=== PATIENT | female | born 1940 | race Caucasian/White ===

== ENCOUNTER 2019-10-17 08:15 | Emergency (ER) | payer MEDICARE, SELFPAY ==
--- NOTE | ~2019-10-17 | CT_ITS ---
EXAMINATION: CT brain wo con DATE: 10/17/2019 09:02 INDICATION: Head injury. TECHNIQUE: Computed tomography (CT) of the head was performed without intravenous contrast. The mA wa s adjusted according to patient size. Iterative reconstruction technique was employed. The dose-lengt h product was 605.33 mGy-cm. COMPARISON: Head CT 08/18/2006 FINDINGS: There is diffuse brain volume loss, worst in the anterior temporal lobes. There are old lac unar infarcts in the bilateral basal ganglia. There are scattered areas of low attenuation in the cer ebral white matter. There is no intracranial hemorrhage, acute infarction, or abnormal intracranial m ass lesion. The ventricles are normal in size. There is a left lateral scalp hematoma. The paranasal sinuses are clear. The orbits are normal. The mastoid air cells are normal. IMPRESSION: 1. Old lacunar infarcts in the bilateral basal ganglia. 2. Moderate nonspecific cerebral white matter disease, which likely represents chronic small vessel i schemic disease. Reviewed, dictated and finalized at location A. IMPRESSION: 1. Old lacunar infarcts in the bilateral basal ganglia. 2. Moderate nonspecific cerebral white matter disease, which likely represents chronic small vessel ischemic disease.
--- NOTE | ~2019-10-17 | XR_ITS ---
EXAMINATION: XR tibia fibula LT 2V EXAM DATE: 10/17/2019 09:39 INDICATION: Fall, hematoma proximal lateral fibula. TECHNIQUE: Left tibia/fibula frontal and lateral projections obtained and reviewed. Correlation is jocelyn newton to left knee exam 08/04/2012. FINDINGS: Left tibial and fibular shafts are unremarkable on the frontal projection. On the lateral projection the distalmost tip of the fibula was collimated off the image. If there is any clinical lopez spicion of ankle region injury a repeat lateral can be obtained and addendum added. There are no acut e fractures or dislocations identified. There is no subcutaneous gas. There are arterial calcificat ions, arteriosclerosis. There are no radiopaque foreign bodies. 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 IMPRESSION: Limited distal fibular tip evaluation. Otherwise no acute osseous findings. Reviewed, dictated and finalized at location A. IMPRESSION: Limited distal fibular tip evaluation. Otherwise no acute osseous f indings.
--- NOTE | ~2019-10-17 | CT_ITS ---
EXAMINATION: CT cervical spine wo con EXAM DATE: 10/17/2019 09:02 INDICATION: Fall, head injury. TECHNIQUE: Spiral CT of the cervical spine was performed without contrast. Axial images were reviewe d. Coronal and sagittal reformatted images were also reviewed. The dose-length product (DLP) for thi s examination was 165.34 mGy-cm. The exposure was tailored according to patient size (auto mA exposu re control), and iterative reconstruction (ASIR) was used as additional dose reduction technique. ere is no prior study for comparison. FINDINGS: Patient's cervical vertebral bodies and facet joints have osseous fusion. There is no evide nce of acute cervical fracture. The odontoid process is intact. Pre-dens space is normal. Preverte bral soft tissue is normal. There are no soft tissue abnormalities identified. There is no disc spa ce widening or traumatic vertebral body subluxation suspected. IMPRESSION: 1. No acute cervical fracture. 2. Fused cervical spine, may indicate ankylosing spondylitis. Reviewed, dictated and finalized at location A.
--- NOTE | 2019-10-17 08:19 | ED.FALL ---
HPI - Fall General Chief Complaint: Fall Stated Complaint: Fall Time Seen by Provider: 10/17/19 08:19 Source: EMS Mode of arrival: EMS Limitations: language barrier and dementia History of Present Illness HPI Narrative: The patient is an 79-year-old severely demented female who presents for evaluation of fall out of bed. Patient reportedly witnessed rolled out of bed this morning at her long-term care facility. Patient reportedly had no loss of consciousness. Patient had large bruising noted to her forehead and left side of her head. Patient has chronic, severe dementia, is nonverbal, is unable to eat. She was sent here for evaluation of intracranial injury given the bruising and unable to provide any history. Related Data Home Medications Medication Instructions Recorded Confirmed Multilex 10/17/19 aspirin 81 mg PO DAILY 10/17/19 10/17/19 docusate sodium 100 mg PO DAILY 10/17/19 10/17/19 guaifenesin [Mucinex] 600 mg PO BID 10/17/19 10/17/19 linaclotide [Linzess] 72 mcg PO QAM 10/17/19 10/17/19 pantoprazole 40 mg PO QAM 10/17/19 10/17/19 Allergies Allergy/AdvReac Type Severity Reaction Status Date / Time No Known Allergies Allergy Unknown Verified 10/17/19 08:52 Review of Systems Review of Systems: ROS unobtainable: Yes unobtainable due to medical condition PMFSH Past Medical History Medical History Dementia Diabetes Hypertension Surgical History Surgical History H/O inguinal hernia repair History of appendectomy Hx of cholecystectomy Family History Family History (Updated 11/23/13 @ 07:13 by DOCTOR UNKNOWN) Sibling Family history of gout Family history of obesity Family history of heart disease in male family member before age 55 Mother Patient's mother is Father Patient's father is Family history of coronary artery disease Social History Social History Smoking status: Never smoker Alcohol intake: never Exam Narrative: Exam Narrative: GENERAL: Awake, alert, nonverbal HEAD: Hematoma to forehead, hematoma to left parietal lobe, non-boggy, no depressions palpated EYES: PERRLA and EOMI. ENT: Nares clear, no rhinorrhea or epistaxis. Mucous membranes moist. NECK: Cervical collar in place. No grimace with patient. CHEST: No respiratory distress, breathing even and non labored, chest wall stable without crepitus, no grimace with palpation, no ecchymoses HEART: Regular rate, sinus rhythm ABDOMEN:Non distended, non tender. Pelvis is stable to anterior lateral compression. EXTREMITIES: Normal range of motion. No edema. No squaring off of the shoulders. No deformities noted. No deformities to the shoulders, elbows, wrists, hands bilaterally. Ecchymoses to the left lateral leg. SKIN: Warm, dry, no rash. NEURO: At baseline per EMS. Chronic upper extremity contractures. Limited spontaneous movement. Nonverbal. Unable to respond to commands. Increased tonicity, rigidity upper and lower extremities. No posturing. Course Vital Signs Vital signs: Vital Signs Temperature 36.6 C 10/17/19 08:33 Pulse Rate 62 10/17/19 08:33 Respiratory Rate 16 10/17/19 08:33 Blood Pressure 90/52 L 10/17/19 08:33 Pulse Oximetry 98 10/17/19 08:33 Temperature 36.6 C 10/17/19 08:33 Pulse Rate 62 10/17/19 08:33 Respiratory Rate 16 10/17/19 08:33 Blood Pressure 90/52 L 10/17/19 08:33 Pulse Oximetry 98 10/17/19 08:33 MDM - Fall MDM Narrative Medical decision making narrative: Patient presented from care facility for evaluation of rolled from bed that was witnessed. Patient without loss of consciousness. She was sent here for evaluation of intracranial injury. On exam, patient does have a left scalp hematoma without laceration. No cervical midline tenderness or step-offs on exam. P
[2019-10-17 08:33] VITALS: BP 90/52; PULSE 62; RESP 16; TEMP 36.6; O2SAT 98
== END 2019-10-17 11:15 ==
PROVIDERS: Emergency Provider Emergency Medicine; PCP Family Medicine
DX: S09.90XA Unspecified injury of head, initial encounter (principal); W06.XXXA Fall from bed, initial encounter; F03.90 Unspecified dementia, unspecified severity, without behavioral disturbance, psychotic disturbance, mood disturbance, and anxiety; E11.9 Type 2 diabetes mellitus without complications; I10 Essential (primary) hypertension
CPT/HCPCS: 70450; 72125; 73590; 99284; L0140

== ENCOUNTER 2019-12-28 14:26 | Emergency (ER) | payer MEDICARE, SELFPAY ==
[2019-12-28] VITALS (31 sets, daily range): BP systolic 104–149; BP diastolic 50–98; PULSE 84–113; RESP 10–27; TEMP 36.4–36.6; O2SAT 86–96
--- NOTE | ~2019-12-28 | CT_ITS ---
EXAMINATION: CT abdomen pelvis w con DATE: 12/28/2019 16:44 INDICATION: Failure to thrive TECHNIQUE: Computed tomography (CT) of the abdomen and pelvis was performed with 100 cc Omnipaque 350 intravenous contrast. Automated exposure control and iterative reconstruction technique were employe d. Exam dose: 520.40 mGy-cm total exam DLP. COMPARISON: 05/29/2018 CT chest abdomen pelvis FINDINGS: There is bilateral lateral lower lobe dependent atelectasis. Heart size is within normal limits. No pericardial effusion. Very slight right pleural effusion. The gallbladder appears to be surgically absent. There are calcified hepatic and numerous calcified s plenic granulomas. No hepatic, splenic, pancreatic, and adrenal space-occupying mass lesion is eviden t. There is a large exophytic cyst of the upper pole of the right kidney and another of the lower katelynn e of the left kidney. No solid renal space-occupying mass lesion is evident. No urinary tract calculu s or hydroureteronephrosis. The urinary bladder and uterus and adnexal areas appear unremarkable. There is extensive atherosclerotic calcification of the abdominal aorta but no abdominal aortic aneur ysm. No intraperitoneal or retroperitoneal or pelvic mass lesion or adenopathy or ascites. There is extensive rectosigmoid fecal impaction measuring up to 11 x 12 mm on axial images and up to 20 cm length, with moderate thickening of the rectal and sigmoid colon wall, suggesting stercoral col itis. There is prominent fecal material within much of the remainder of the colon and gaseous distent ion of colon and small bowel, with small bowel air-fluid levels, minimal small bowel dilatation. Diffuse osteopenia. There is ossification along the anterior longitudinal ligament and squaring of an terior vertebral bodies and some ankylosis at the sacroiliac joints. 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 Reviewed, dictated and finalized at location B.
--- NOTE | ~2019-12-28 | CT_ITS ---
EXAMINATION: CT brain wo con DATE: 12/28/2019 16:44 INDICATION: Mental status change. TECHNIQUE: Computed tomography (CT) of the head was performed without intravenous contrast. The mA wa s adjusted according to patient size. Iterative reconstruction technique was employed. The dose-lengt h product was 605.33 mGy-cm. COMPARISON: Head CT 10/17/2019 FINDINGS: There is diffuse brain volume loss. There are old lacunar infarcts in the bilateral basal g anglia. There are scattered areas of low attenuation in the cerebral white matter. There is no intrac ranial hemorrhage, acute infarction, or abnormal intracranial mass lesion. The ventricles are normal in size and degree of diffuse brain volume loss. The orbits are normal. The mastoid air cells are nor mal. The paranasal sinuses are clear. IMPRESSION: 1. Old lacunar infarcts in the bilateral basal ganglia. 2. Stable moderate nonspecific cerebral white matter disease, which likely represents chronic small v essel ischemic disease. Reviewed, dictated and finalized at location A. IMPRESSION: 1. Old lacunar infarcts in the bilateral basal ganglia. 2. Stable moderate nonspecific cerebral white matter disease, which likely repr esents chronic small vessel ischemic disease.
[2019-12-28 15:08] LABS: Add Urine Microscopic? YES; Appearance Urine Clear (Clear); Bacteria Urine Trace /hpf; Bilirubin Urine 1+ (Negative); Blood Urine Negative (Negative); Color Urine Amber (Yellow); Glucose Urine UA Negative (Negative); Ketones Urine Trace mg/dL (Negative); Leukocyte Esterase Ur Trace LEU/UL (Negative); Mucus Urine Rare /lpf; Nitrate Urine Negative (Negative); Protein Urine 1+ mg/dL (Negative); Squamous Epithelial Cell Urine Many /hpf (Few)
[2019-12-28 15:16] LABS: Basophils Percent Auto 0.2 % (0.2-1.2); Hemoglobin 14.2 g/dL (12.0-15.0); Immature Granulocyte Absolute 0.04 K/mm3 (0.00-0.031); Immature Granulocyte Percent A 0.3 % (0-0.5); Lymphocytes Absolute Auto 0.69 K/mm3 (0.9-3.2); Lymphocytes Percent Auto 5.8 % (18.3-44.2); Mean Corpuscular HGB Conc 33.8 g/dl (32-36); Mean Corpuscular Hemoglobin 33.5 pg (26-34); Mean Corpuscular Volume 99.1 fl (80-100); Mean Platelet Volume 10.8 fl (7.4-10.4); Monocytes Absolute Auto 0.4 K/mm3 (0.1-0.6); Monocytes Percent Auto 3.6 % (2.6-8.5); Neutrophils Absolute Auto 10.8 K/mm3 (1.3-6.7); Neutrophils Percent Auto 90.1 % (45.5-73.1); Platelet Count Result 303 k/mm3 (150-375); Red Blood Count 4.24 M/mm3 (4.2-5.4); Red Cell Distribution Width 12.9 % (11.5-14.5); White Blood Count 11.9 K/mm3 (4.5-10.0)
[2019-12-28 15:23] LABS: Specific Grav Ur 1.031 (1.001-1.035)
[2019-12-28 15:30] LABS: INR 1.3; Prothrombin Time 16.1 Seconds (11.1-14.7)
[2019-12-28 15:31] LABS: Partial Thromboplastin Time 29.7 SECONDS (22.3-36.8)
[2019-12-28 15:33] LABS: Alanine Aminotransferase 80 U/L (4-35); Albumin Level 3.8 g/dL (3.5-5.1); Alkaline Phosphatase 98 U/L (38-126); Anion Gap 7 mmol/L (8-16); Aspartate Amino Transferase 56 U/L (14-36); Bilirubin,Total 1.4 mg/dL (0.2-1.3); Blood Urea Nitrogen 32 mg/dL (7-17); CRP 3.9 mg/dL (<1.0); Calcium 9.9 mg/dL (8.4-10.2); Carbon Dioxide 34 mmol/L (22-30); Chloride 102 mmol/L (98-107); Estimated CRCL calculation 56 ml/min; Estimated Glomerular Filt Rate > 60; Glucose 193 mg/dL (65-105); Potassium 3.6 mmol/L (3.4-5.0); Sodium 143 mmol/L (137-145)
[2019-12-28 15:34] LABS: Lactic Acid Reflex 1.4 mmol/L (0.7-2.1)
[2019-12-28 15:42] LABS: Troponin I < 0.012 ng/mL (0.000-0.034)
--- NOTE | 2019-12-28 16:29 | ED.GENADULT ---
HPI - General Adult General Chief complaint: Weakness Stated complaint: LETHARGY Time Seen by Provider: 12/28/19 14:35 Source: EMS Limitations: clinical condition History of Present Illness HPI narrative: 79 years old female came from [place] with a chief complaint of failure to thrive. [facility] staff told me that patient is refusing to eat or take her medications. The told me that patient does talk for the last 14 years, family had a hospice meeting today and requested to send patient to the ED to find out that patient been no longer communicating and does not want to eat. Patient responsive only to painful stimulation. Related Data Home Medications Medication Instructions Recorded Confirmed Multilex 10/17/19 aspirin 81 mg PO DAILY 10/17/19 10/17/19 docusate sodium 100 mg PO DAILY 10/17/19 10/17/19 guaifenesin [Mucinex] 600 mg PO BID 10/17/19 10/17/19 pantoprazole 40 mg PO QAM 10/17/19 10/17/19 Allergies Allergy/AdvReac Type Severity Reaction Status Date / Time No Known Allergies Allergy Unknown Verified 12/28/19 16:07 Review of Systems Review of Systems: ROS unobtainable: Yes unobtainable due to medical condition and unobtainable due to mental status PMFSH Past Medical History Medical History Dementia Diabetes Hypertension Surgical History Surgical History H/O inguinal hernia repair History of appendectomy Hx of cholecystectomy Family History Family History Sibling Family history of gout Family history of obesity Family history of heart disease in male family member before age 55 Mother Patient's mother is Father Patient's father is Family history of coronary artery disease Social History Social History Smoking status: Never smoker Alcohol intake: never Exam Narrative: Exam Narrative: General appearance: Well-developed, well-nourished, laying down in bed, eyes open, mouth breathing, does not look in pain or distress. Does not follow verbal commands Skin: Normal color Head: Normocephalic, nontraumatic Eyes: Clear conjunctiva ENT: Oropharynx normal, ears normal, nose normal Neck: Supple, nontender Chest and respiratory: Airway patent, no respiratory distress, no accessory muscle use Heart: Regular rate/rhythm Abdomen: Soft, nontender, no organomegaly, quiet bowel sounds, rectal exam showed fecal impaction at the anal area Vascular: Normal peripheral pulses, normal capillary refill. Neurologic: Awake, responding to painful stimulation only. Patient does not follow commands. Course Course Emergency Course: Stable, improving Vital Signs Vital signs: Vital Signs Temperature 36.4 C 12/28/19 14:25 Pulse Rate 89 12/28/19 14:25 Respiratory Rate 20 12/28/19 14:25 Blood Pressure 149/63 H 12/28/19 14:25 Pulse Oximetry 94 12/28/19 14:25 Temperature 36.4 C 12/28/19 14:25 Pulse Rate 94 12/28/19 16:17 Respiratory Rate 15 12/28/19 16:17 Blood Pressure 130/63 12/28/19 16:16 Pulse Oximetry 86 L 12/28/19 15:00 Procedures Rectal Disimpaction Rectal Disimpaction #1: Rectal Disimpaction Date: 12/28/19 Rectal Disimpaction Time: 18:22 Time out performed rectal disimpaction: Yes (20) Indication: fecal impaction Procedural Sedation: No Sedation/Analgesia: none Technique: manual disimpaction with gloved finger Result: significant stool output Patient Tolerated Procedure: well and no c
--- NOTE | 2019-12-28 17:20 | PC.NURSE ---
spoke with patients via phone to update him on plan of care.
--- NOTE | 2019-12-28 18:11 | PC.NURSE ---
at bedside for digital disimpaction. Cat RN at beside to assist.
--- NOTE | 2019-12-28 19:45 | PC.NURSE ---
called jorge to [facility] et[facility]
--- NOTE | 2019-12-28 20:30 | PC.NURSE ---
patel has arrived
== END 2019-12-28 20:31 ==
PROVIDERS: Emergency Provider Emergency Medicine; PCP Family Medicine
DX: K56.41 Fecal impaction (principal); F32.9 Major depressive disorder, single episode, unspecified; F03.90 Unspecified dementia, unspecified severity, without behavioral disturbance, psychotic disturbance, mood disturbance, and anxiety; E11.9 Type 2 diabetes mellitus without complications; I10 Essential (primary) hypertension; Z79.82 Long term (current) use of aspirin; N28.1 Cyst of kidney, acquired; R90.82 White matter disease, unspecified
CPT/HCPCS: 36415; 51701; 70450; 74177; 80053; 81001; 83605; 84484; 85025; 85610; 85730; 86140; 87040; 87086; 99284; Q9967

== ENCOUNTER 2020-02-20 01:27 | Inpatient (IN) | payer MEDICARE, SELFPAY ==
[2020-02-20] VITALS (12 sets, daily range): BP systolic 92–132; BP diastolic 50–88; PULSE 87–100; RESP 14–21; TEMP 35.6–36.9; O2SAT 94–100; BMI 18.0
--- NOTE | ~2020-02-20 | XR_ITS ---
XR abdomen/kub 1V 02/20/2020 03:22 Indication: Constipation Procedure: KUB Comparison: 05/05/2004 Findings: Bowel gas pattern is nonobstructive. There is some colonic fecal loading of the distal colo n and rectum. There are multiple radiodensities in the rectum, likely bowel content. There is a radio density in the left overlying the left upper abdomen, likely foreign body. Calcified granulomas in th e spleen. Generalized osteopenia. There appears to be ankylosis of the sacroiliac joints. Impression: 1: Fecal impaction of the distal colon and rectum. Reviewed, dictated and finalized at location A. GER SOFTWARE Impression: 1: Fecal impaction of the distal colon and rectum.
--- NOTE | ~2020-02-20 | XR_ITS ---
XR chest 1V 02/20/2020 02:21 Indication: Altered mental status. Dyspnea. Procedure: AP chest Comparison: 05/29/2018 Findings: Heart size normal. No focal air space disease, pulmonary edema, pleural effusion or suspect ed pneumothorax. There are degenerative changes of the shoulders. There is a metallic foreign body ov erlying the left upper abdomen. Impression: 1: No acute cardiopulmonary disease. Reviewed, dictated and finalized at location A. MATIC BUFFER Impression: 1: No acute cardiopulmonary disease.
--- NOTE | ~2020-02-20 | CT_ITS ---
EXAMINATION: CT brain wo con DATE: 02/20/2020 02:17 INDICATION: Altered mental status TECHNIQUE: Computed tomography (CT) of the head was performed without intravenous contrast. The dose- length product was 605.33 mGy-cm. The mA was adjusted according to patient size. Iterative reconstruc tion technique was employed. COMPARISON: CT dated 12/28/2019 FINDINGS: Generalized atrophy. There are scattered moderate periventricular and subcortical white mat ter changes, most likely related to small vessel ischemic disease (microangiopathy). Persistent dilat ion of the ventricles without significant change, likely compensatory due to atrophy. No acute intrac ranial hemorrhage, infarction, mass or mass effect. No midline shift. Paranasal sinuses and mastoids are pneumatized. No depressed skull fractures. IMPRESSION: 1. No acute intracranial abnormality. 2: Chronic age-related findings. Reviewed, dictated and finalized at location [facility]. [facility]
--- NOTE | 2020-02-20 01:49 | PC.NURSE ---
Did dental care on patient . patient had built up food in her mouth.
--- NOTE | 2020-02-20 01:51 | ED.WEAKNESS ---
HPI - Weakness General Chief complaint: Weakness Stated complaint: alt loc Time Seen by Provider: 02/20/20 01:42 History of Present Illness HPI Narrative: 79 yo female [facility] for altered mental status. She has reportedly not been her usual self for a few weeks. Normal talks and eats. She is now nonverbal and has reportedly not eaten in days. History limited by mental status. Related Data Home Medications Medication Instructions Recorded Confirmed Multilex 10/17/19 aspirin 81 mg PO DAILY 10/17/19 10/17/19 docusate sodium 100 mg PO DAILY 10/17/19 10/17/19 guaifenesin [Mucinex] 600 mg PO BID 10/17/19 10/17/19 pantoprazole 40 mg PO QAM 10/17/19 10/17/19 Allergies Allergy/AdvReac Type Severity Reaction Status Date / Time No Known Allergies Allergy Unknown Verified 12/28/19 16:07 Review of Systems Review of Systems: ROS unobtainable: Yes unobtainable due to mental status PMFSH Past Medical History Medical History Dementia Diabetes Hypertension Surgical History Surgical History H/O inguinal hernia repair History of appendectomy Hx of cholecystectomy Family History Family History Sibling Family history of gout Family history of obesity Family history of heart disease in male family member before age 55 Mother Patient's mother is Father Patient's father is Family history of coronary artery disease Social History Social History Smoking status: Never smoker Alcohol intake: never Gender identity (if verbalized by the patient): Female Exam Const: General: ill appearing acutely and chronically Nutritional Appearance: thin HENMT: Mouth: Yes dry mucous membranes Eyes: Pupils: Equal, round and reactive pupils present Resp: Effort & Inspection: normal respiratory effort Auscultation: clear to auscultation bilaterally Cardio: Rate: tachycardic Rhythm: regular rhythm GI: Inspection: non-distended GI Palp: Yes Tenderness to palpation present (GI) Skin: General skin exam: normal color Neuro: General: moves all extremities Other: Not answering question or following commands Extrem: General: no edema Course Vital Signs Vital signs: Vital Signs Temperature 36.6 C 02/20/20 01:59 Respiratory Rate 15 02/20/20 01:59 Blood Pressure 132/88 02/20/20 01:59 Pulse Oximetry 98 02/20/20 01:59 Temperature 36.6 C 02/20/20 01:59 Pulse Rate 90 02/20/20 02:44 Respiratory Rate 21 H 02/20/20 02:44 Blood Pressure 92/63 L 02/20/20 02:44 Pulse Oximetry 96 02/20/20 02:45 MDM - Weakness MDM Narrative Medical decision making narrative: Meets sepsis criteria. UA concerning for UTi. At this point dehydration seems to be the primary issue. Differential Diagnosis Differential diagnosis: Likely sepsis and dehydration Medical Records Attestation: I reviewed the patient's medical records. Lab Data Attestation: I reviewed the patient's lab results. Result diagrams: 02/20/20 02:29 02/20/20 02:29 Labs: Lab Results 02/20/20 02/20/20 02/20/20 Range/Units 02:29 02:29 02:29 WBC 13.1 H (4.5-10.0) K/mm3 RBC 4.90 (4.2-5.4) M/mm3 Hgb 15.6 H (12.0-15.0) g/dL Hct 49.4 H (37.0-47.0) % MCV 100.8 H (80-100) fl MCH 31.8 (26-34) pg MCHC 31.6 L (32-36) g/dl RDW 14.7 H (11.5-14.5) % Plt Count 333 (150-375) k/mm3 MPV 12.0 H (7.4-10.4) fl Immature Gran % (Auto) Not Reportable Neut % (Auto) Not Reportable Lymph % (Auto) Not Reportable Harlan % (Auto) Not Reportable Eos % (Auto) Not Reportable Baso % (Auto) Not Reportable Lymph # (Auto) Not Reportable Harlan # (Auto) Not Reportable Eos # (Aut
--- NOTE | 2020-02-20 01:55 | ECG_ITS ---
Measurements Intervals [place] Rate: 98 P: 60 CT: 131 QRS: 38 QRSD: 88 T: 69 QT: 359 QTc: 459 Interpretive Statements SINUS RHYTHM LOW QRS VOLTAGE IN LIMB LEADS BORDERLINE ST-T WAVE ABNORMALITY- DIFFUSE LEADS BORDERLINE ECG Electronically Signed On 02-20-2020 7:17:35 SAFETY DIRECTOR by Domingo Greene D.O.
[2020-02-20] MEDS: SODIUM CHLORIDE 0.9% IV 1,000 ML 999 ML IV CONT ×2 (02:35→04:32)
[2020-02-20 02:36] LABS: Hematocrit 49.4 % (37.0-47.0); Hemoglobin 15.6 g/dL (12.0-15.0); Mean Corpuscular HGB Conc 31.6 g/dl (32-36); Mean Corpuscular Hemoglobin 31.8 pg (26-34); Mean Corpuscular Volume 100.8 fl (80-100); Platelet Count Result 333 k/mm3 (150-375); Red Cell Distribution Width 14.7 % (11.5-14.5); White Blood Count 13.1 K/mm3 (4.5-10.0)
[2020-02-20 02:45] LABS: INR 1.3; Prothrombin Time 17.2 Seconds (11.1-14.7)
[2020-02-20 02:46] LABS: Partial Thromboplastin Time 35.1 SECONDS (22.3-36.8)
[2020-02-20 02:56] LABS: Alanine Aminotransferase 50 U/L (4-35); Albumin Level 3.8 g/dL (3.5-5.1); Alkaline Phosphatase 423 U/L (38-126); Anion Gap 13 mmol/L (8-16); Aspartate Amino Transferase 36 U/L (14-36); Bilirubin,Total 2.9 mg/dL (0.2-1.3); Blood Urea Nitrogen 57 mg/dL (7-17); Calcium 10.7 mg/dL (8.4-10.2); Carbon Dioxide 30 mmol/L (22-30); Chloride 111 mmol/L (98-107); Estimated CRCL calculation 12 ml/min; Estimated Glomerular Filt Rate 23; Glucose 245 mg/dL (65-105); Potassium 3.8 mmol/L (3.4-5.0); Sodium 154 mmol/L (137-145)
[2020-02-20 03:09] LABS: Band Neutrophils Percent 10 % (0-6); Lymphocytes Absolute Manual 1.04 K/mm3 (1.1-4.5); Metamyelocytes Percent 2 %; Monocytes Absolute Manual 0.65 K/mm3 (0.1-0.90); Monocytes Percent Manual 5 % (3-9); Neutrophils Absolute Manual 11.13 K/mm3 (1.7-7.2); Neutrophils Percent Manual 75 % (46-73); Platelet Estimate Adequate (Adequate); Total Cells Counted 100
[2020-02-20 03:10] LABS: Large Platelets Present
[2020-02-20 03:13] LABS: Add Urine Microscopic? YES; Appearance Urine Cloudy (Clear); Bacteria Urine Trace /hpf; Bilirubin Urine 1+ (Negative); Blood Urine 1+ (Negative); Color Urine Amber (Yellow); Glucose Urine UA Negative (Negative); Ketones Urine Trace mg/dL (Negative); Leukocyte Esterase Ur Negative LEU/UL (Negative); Mucus Urine Heavy /lpf; Nitrate Urine Negative (Negative); Protein Urine 2+ mg/dL (Negative); Specific Grav Ur 1.025 (1.001-1.035); Squamous Epithelial Cell Urine Rare /hpf (Few); WBC Urine 51-75 /hpf
[2020-02-20 05:33] LABS: Reflex Lactic Acid Yes or No Add Lactic
[2020-02-20] MEDS: LACTATED RINGERS 1,000 ML 75 ML IV CONT ×2 (07:05→20:23)
--- NOTE | 2020-02-20 07:48 | ADMGEN ---
This patient, Carolann Griffith, was admitted to [facility] Surg Room 324-02. Patient/family oriented to hospital policies and general routines including ID bracelet, bed and alarms, visiting hours, pain management, procedures, bathroom and other care routines, personal items, smoking policy, room service/diet, and visiting hours. Information on how to activate the Rapid Response Team has been discussed. Patient/Family are encouraged to report perceived risks to care and to ask questions if they do not understand what they are told or what they should do.
[2020-02-20 08:11] LABS: Lactic Acid 2.3 mmol/L (0.7-2.1)
--- NOTE | 2020-02-20 11:00 | PCDIET ---
Dietitian Screen for BMI: 18.0 underweight. Spoke with nursing today, patient is unresponsive at this time. Will assess if indicated.
--- NOTE | 2020-02-20 13:25 | PM.IMHP ---
H&P: HPI History of Present Illness Date/Time: 02/20/20 13:25 Chief complaint: Sepsis, UTI, Dehydration Narrative: Carolann Griffith is a 79 year old female with past medical history of GERD, constipation who [facility] with [facility]. Patient unable to provide history as she is somnolent and nonverbal. Patient has been steadily declining over the past month. typically will see patient and penitentiary through the window and she is less responsive. She is now nonverbal and has not eaten in days. There has been cases of COVID-19 at her penitentiary. Review of Systems Review of Systems: ROS unobtainable: Yes unobtainable due to medical condition and unobtainable due to mental status PMFSH Past Medical History Medical History (Updated 02/20/20 @ 19:45 by Peri Swanson DO) Dementia Diabetes Hypertension Surgical History Surgical History H/O inguinal hernia repair History of appendectomy Hx of cholecystectomy Family History Family History Sibling Family history of gout Family history of obesity Family history of heart disease in male family member before age 55 Mother Patient's mother is Father Patient's father is Family history of coronary artery disease Social History Social History Smoking status: Never smoker Alcohol intake: unknown Substance use: unknown Gender identity (if verbalized by the patient): Female Spiritual care concerns: No Meds Home Medications and Allergies Home Medications Medication Instructions Recorded Confirmed Type Multilex 1 tab-cap PO DAILY 10/17/19 02/20/20 History aspirin 81 mg PO DAILY 10/17/19 02/20/20 History docusate sodium 100 mg PO DAILY 10/17/19 02/20/20 History guaifenesin [Mucinex] 600 mg PO BID 10/17/19 02/20/20 History linaclotide 72 mcg capsule 72 mcg PO QAM #90 cap 02/02/20 02/20/20 Rx lansoprazole 30 mg PO DAILY 02/20/20 02/20/20 History Allergies Allergy/AdvReac Type Severity Reaction Status Date / Time No Known Allergies Allergy Unknown Verified 02/20/20 08:08 Vital Signs Vital Signs - 24 hr 02/20/20 01:59 02/20/20 02:44 02/20/20 02:45 Temperature 36.6 C Pulse Rate 90 Respiratory Rate 15 21 H Blood Pressure 132/88 92/63 L Pulse Oximetry 98 96 96 02/20/20 06:13 02/20/20 06:41 02/20/20 06:55 Temperature 36.6 C 36.5 C 36.7 C Pulse Rate 88 100 89 Respiratory Rate 14 18 16 Blood Pressure 114/61 109/81 122/50 L Pulse Oximetry 97 94 100 02/20/20 08:00 02/20/20 12:00 Temperature Pulse Rate 87 94 Respiratory Rate Blood Pressure Pulse Oximetry Exam Narrative: Exam Narrative: - GENERAL: Ill-appearing frail woman in no respiratory distress. Unresponsive, opens eyes spontaneously, does not withdraw to sternal rub. - EYES: EOMI. Anicteric. - HENT: Dry oral mucosa - LUNGS: Clear to auscultation bilaterally - CARDIOVASCULAR: Regular rate and rhythm - ABDOMEN: Soft, nondistended, no palpable masses. - EXTREMITIES: No edema. Peripheral pulses 2+. - NEUROLOGIC: Unable to assess due to medical/mental status - PSYCHIATRIC: Awake, unarousable somnolent. Unable to assess due to medical/mental status - SKIN: No rashes or lesions. Warm. H&P: Results Labs Labs: Short CBC 02/20/20 Range/Units 02:29 WBC 13.1 H (4.5-10.0) K/mm3 Hgb 15.6 H (12.0-15.0) g/dL Hct 49.4 H (37.0-47.0) % Plt Count 333 (150-375) k/mm3 BMP 02/20/20 02:29 Sodium 154 H Potassium 3.8 Chloride 111 H Carbon Dioxide 30 BUN 57 H D Creatinine 2.10 H Glucose 245 H Calcium 10.7 H Liver Function 02/20/20 Range/Units 02:29 Total Bilirubin 2.9 H (0.2-1.3) mg/dL AST 36 (14-36) U/L ALT 50 H (4-35) U/L Alkaline Phosphatase 423 H (
[2020-02-20] MEDS: HEPARIN SODIUM 5,000 UNITS/ML VIAL 5000 UNITS SUB-Q (20:18)
[2020-02-20 21:24] LABS: Glucose Point of Care 97 (65-105)
[2020-02-21] VITALS (8 sets, daily range): BP systolic 106–123; BP diastolic 40–59; PULSE 68–96; RESP 16–20; TEMP 36.8–37.1; O2SAT 92–100
[2020-02-21 02:00] LABS: SARS-CoV-2 RNA PCR Negative
[2020-02-21 02:19] LABS: Glucose Point of Care 90 (65-105)
[2020-02-21 06:09] LABS: Glucose Point of Care 95 (65-105)
[2020-02-21 07:51] LABS: Hematocrit 41.5 % (37.0-47.0); Hemoglobin 13.1 g/dL (12.0-15.0); Mean Corpuscular HGB Conc 31.6 g/dl (32-36); Mean Corpuscular Volume 101.5 fl (80-100); Mean Platelet Volume 12.5 fl (7.4-10.4); Platelet Count Result 192 k/mm3 (150-375); Red Blood Count 4.09 M/mm3 (4.2-5.4); Red Cell Distribution Width 14.6 % (11.5-14.5); White Blood Count 13.6 K/mm3 (4.5-10.0)
[2020-02-21 08:21] LABS: Anion Gap 11 mmol/L (8-16); Blood Urea Nitrogen 46 mg/dL (7-17); Calcium 9.5 mg/dL (8.4-10.2); Carbon Dioxide 22 mmol/L (22-30); Chloride 121 mmol/L (98-107); Estimated CRCL calculation 50 ml/min; Estimated Glomerular Filt Rate > 60; Glucose 106 mg/dL (65-105); Magnesium 2.2 mg/dL (1.6-2.3); Potassium 2.9 mmol/L (3.4-5.0); Sodium 154 mmol/L (137-145)
[2020-02-21] MEDS: HEPARIN SODIUM 5,000 UNITS/ML VIAL 5000 UNITS SUB-Q (08:55)
[2020-02-21] MEDS: LACTATED RINGERS 1,000 ML 75 ML IV CONT (10:49)
--- NOTE | 2020-02-21 12:10 | PM.IMPN ---
Progress Note: A&P Assessment and Plan (1) Urinary tract infection: Qualifiers: Urinary tract infection type: site unspecified Hematuria presence: without hematuria Qualified Code(s): N39.0 - Urinary tract infection, site not specified Code(s): N39.0 - Urinary tract infection, site not specified Status: Acute Assessment and Plan: -UA consistent with infection with elevated wbc's urine (2) Sepsis: Qualifiers: Sepsis type: sepsis due to unspecified organism Sepsis acute organ dysfunction status: with acute organ dysfunction Severe sepsis acute organ dysfunction type: encephalopathy Code(s): A41.9 - Sepsis, unspecified organism Status: Acute Assessment and Plan: -treating UTI with Rocephin, awaiting cultures and sensitivities -checking COVID-19 as there are positive case of her longterm -causing her age continue IV fluids Ringer's lactate at 75 cc/hour -elevated WBC, elevated lactic acid -rechecking labs in a.m. (3) Acute encephalopathy: Code(s): G93.40 - Encephalopathy, unspecified Status: Acute Assessment and Plan: -likely progression of dementia versus infectious encephalopathy -patient also appears to have failure to thrive, patient is significantly dehydrated, with decompensation over months/years as opposed to a few days this is more likely a dementia etiology as opposed to infectious. Patient's mentation is not improving despite IV antibiotics. This is likely progression of dementia. -holding all home p.o. meds while NPO (4) Acute kidney injury: Code(s): N17.9 - Acute kidney failure, unspecified Status: Acute Assessment and Plan: Likely prerenal secondary to UTI sepsis. Additional Plan Diet: NPO DVT prophylaxis: Heparin Code status: Full code Disposition: Medical floor IV fluids and antibiotics, hospice referral sent, is agreeable Subjective Date/time seen: 02/21/20 12:10 Patient examined. Patient is clinically not really improving, likely decline from dementia. Updated . From 2005 dementia started. Urine cultures grew aerococcus urinae. In reviewing goals of care with , with end-stage dementia we discussed hospice may be more appropriate. Consult case management to provide hospice information . Review of Systems Review of Systems: ROS unobtainable: Yes unobtainable due to medical condition and unobtainable due to mental status Exam Narrative: Exam Narrative: - GENERAL: Ill-appearing frail woman in no respiratory distress. Unresponsive which is baseline, kept eyes open - EYES: EOMI. Anicteric. - HENT: Dry oral mucosa - LUNGS: Clear to auscultation bilaterally - CARDIOVASCULAR: Regular rate and rhythm - ABDOMEN: Soft, nondistended, no palpable masses. - EXTREMITIES: No edema. Peripheral pulses 2+. - NEUROLOGIC: Unable to assess due to medical/mental status - PSYCHIATRIC: Awake, unarousable somnolent. Unable to assess due to medical/mental status - SKIN: No rashes or lesions. Warm. Objective Data Vital Signs Vital Signs: Vital Signs - 24 hr 02/20/20 14:00 02/20/20 16:00 02/20/20 20:20 Temperature 35.6 C L Pulse Rate 91 90 Respiratory Rate 16 Blood Pressure 112/70 Pulse Oximetry 95 94 02/20/20 21:10 02/21/20 00:00 02/21/20 02:00 Temperature 36.9 C 37.1 C Pulse Rate 90 96 92 Respiratory Rate 20 16 Blood Pressure 111/55 L 116/40 L Pulse Oximetry 94 93 02/21/20 04:00 02/21/20 05:00 02/21/20 09:02 Temperature 36.8 C Pulse Rate 85 84 Respiratory Rate 20 Blood Pressure 106/59 L Pulse Oximetry 92 99 02/21/20 09:10 Temperature Pulse Rate Respiratory Rate Blood Pressure Pulse Oximetry 99 Intake/Output Intake/Output: Intake & Output 02/18/20 02/19/20 02/20/20 02/21/20 23:59 23:59 23:59 23:59 Intake Total 3050 1000 Balance 3050 1000 Meds/Results Medications: Active Medications Generic Name Dose Route Sta
--- NOTE | 2020-02-21 16:35 | PM.DS ---
DS: Admitting Diagnosis Admitting Diagnosis Admitting Diagnosis: Sepsis, UTI, Dehydration DS: Discharge Diagnosis Discharge Diagnosis (1) Urinary tract infection: Qualifiers: Urinary tract infection type: site unspecified Hematuria presence: without hematuria Qualified Code(s): N39.0 - Urinary tract infection, site not specified Code(s): N39.0 - Urinary tract infection, site not specified Status: Acute Assessment and Plan: -aerococcus UTI, treated with Rocephin, stopping antibiotics as patient is going to hospice (2) Sepsis: Qualifiers: Sepsis type: sepsis due to unspecified organism Sepsis acute organ dysfunction status: with acute organ dysfunction Severe sepsis acute organ dysfunction type: encephalopathy Code(s): A41.9 - Sepsis, unspecified organism Status: Acute (3) Acute encephalopathy: Code(s): G93.40 - Encephalopathy, unspecified Status: Acute Assessment and Plan: -likely progression of dementia -failure to thrive, patient is significantly dehydrated, with decompensation over months/years as opposed to a few days this is more likely a dementia etiology as opposed to infectious. Patient's mentation is not improving despite IV antibiotics. This is likely progression of dementia. - agrees to hospice, patient to go home with [facility] hosp[facility] -stopping all home meds as they are nonessential, hospice to follow up with medications when appropriate with pain meds and anxiety (4) Acute kidney injury: Code(s): N17.9 - Acute kidney failure, unspecified Status: Acute Assessment and Plan: Likely prerenal secondary to UTI sepsis. DS: Summary Time Spent with Patient Time attestation: Total time spent providing and/or coordinating discharge services:35 Exam Narrative: Exam Narrative: - GENERAL: Ill-appearing frail woman in no respiratory distress. Unresponsive which is baseline, kept eyes open - EYES: EOMI. Anicteric. - HENT: Dry oral mucosa - LUNGS: Clear to auscultation bilaterally - CARDIOVASCULAR: Regular rate and rhythm - ABDOMEN: Soft, nondistended, no palpable masses. - EXTREMITIES: No edema. Peripheral pulses 2+. - NEUROLOGIC: Unable to assess due to medical/mental status - PSYCHIATRIC: Awake, unarousable somnolent. Unable to assess due to medical/mental status - SKIN: No rashes or lesions. Warm. DS: Data Data Completed and Pending Labs on day of discharge: Labs from last 24 hours 02/21/20 02/21/20 02/21/20 07:16 07:16 06:06 WBC 13.6 H RBC 4.09 L Hgb 13.1 Hct 41.5 MCV 101.5 H MCH 32.0 MCHC 31.6 L RDW 14.6 H Plt Count 192 MPV 12.5 H Sodium 154 H Potassium 2.9 L Chloride 121 H Carbon Dioxide 22 Anion Gap 11 BUN 46 H D Creatinine 0.60 L Estim Creat Clear Calc 50 Estimated GFR > 60 Glucose 106 H POC Capillary Glucose 95 Calcium 9.5 Magnesium 2.2 SARS-CoV-2 RNA (RT-PCR) 02/21/20 02/20/20 02/20/20 02:16 20:22 14:04 WBC RBC Hgb Hct MCV MCH MCHC RDW Plt Count MPV Sodium Potassium Chloride Carbon Dioxide Anion Gap BUN Creatinine Estim Creat Clear Calc Estimated GFR Glucose POC Capillary Glucose 90 97 Calcium Magnesium SARS-CoV-2 RNA (RT-PCR) Negative Discharge Plan Discharge Attending physician on discharge: Peri Swanson Consulting providers: [facility] Discharging Clinician: Peri Swanson Anticipated Discharge Date/Time: 02/21/20 16:30 Patient Disposition: Hospice - Medical Facility Activity: as tolerated Diet: as tolerated Discharge Instructions: Please follow up with [facility] hospice. Patient Language: Iraqi Stand Alone Forms: General Discharge Information Discharge Medications: Discontinued docusate sodium 100 mg Capsule 100 mg PO DAILY RF: 0 aspir
== END 2020-02-21 18:32 | disposition hospice, home (50) | DRG 872 ==
LOC: ANHED 06:00 → ANH3MEDSUR 06:23
PROVIDERS: Admitting Provider Family Medicine; Emergency Provider Emergency Medicine; PCP Family Medicine; Visit Provider Student in an Organized Health Care Education/Training Program
DX: A41.9 Sepsis, unspecified organism (principal); N39.0 Urinary tract infection, site not specified; N17.9 Acute kidney failure, unspecified; G93.49 Other encephalopathy; Z68.1 Body mass index [BMI] 19.9 or less, adult; R65.20 Severe sepsis without septic shock; Z20.828 Contact with and (suspected) exposure to other viral communicable diseases; R62.7 Adult failure to thrive; E86.0 Dehydration; F03.90 Unspecified dementia, unspecified severity, without behavioral disturbance, psychotic disturbance, mood disturbance, and anxiety; I10 Essential (primary) hypertension; E11.9 Type 2 diabetes mellitus without complications; K21.9 Gastro-esophageal reflux disease without esophagitis; K59.00 Constipation, unspecified; Z90.49 Acquired absence of other specified parts of digestive tract
CPT/HCPCS: 36415; 51701; 70450; 71045; 74018; 80048; 80053; 81001; 83605; 83735; 85025; 85027; 85610; 85730; 87077; 87086; 87088; 87635; 93005; 96360; 99285; C9803; J0696; J1644; J3480; J7030; J7120; U0003